=== PATIENT | female | born 1955 | race African-American/Black ===

== ENCOUNTER 2018-02-06 13:05 | Emergency (ER) | payer MEDICARE, OTHER ==
[~2018-02-06] VITALS: Ht 172.7 cm; Wt 95.5 kg
[~2018-02-06 13:05] MED LIST: ALBU8.5H8 IH; AMLO-512 PO; BECL8.7A6 IH; BENA20TA10 PO; CARI350 PO; DEXL30CA3 PO; GLIP10 PO; HYDR-308 PO; INSLAN SQ; METF850T2 PO
[2018-02-06] MEDS ORDERED: METO50 PO (13:20)
[2018-02-06] MEDS ORDERED: DULA1.5P SQ (13:20)
[2018-02-06 14:27] LABS: HEMATOCRIT 34.7 % (36-46); HEMOGLOBIN 11.7 g/dL (12.0-16.0); MEAN CORPUSCULAR HEMOGLOBIN 29.4 pg (26.0-34.0); MEAN CORPUSCULAR HGB CONC 33.9 G/dL (31.0-37.0); MEAN CORPUSCULAR VOLUME 87 fL (80-100); PLATELET COUNT (AUTO) 343 K/uL (150-450); RED CELL DISTRIBUTION WIDTH 14.9 % (11.5-14.5)
[2018-02-06 14:28] LABS: BASOPHILS % (AUTO) 1.4 % (0.0-2.0); EOSINOPHILS % (AUTO) 1.4 % (1.0-6.0); LYMPHOCYTES # (AUTO) 2.2 K/uL (1.0-4.8); LYMPHOCYTES % (AUTO) 20.9 % (22.0-44.0); MONOCYTES # (AUTO) 0.6 K/uL (0.1-1.0); MONOCYTES % (AUTO) 5.7 % (2.0-9.0); NEUTROPHILS # (AUTO) 7.4 K/uL (1.8-7.7); NEUTROPHILS % (AUTO) 70.6 % (40.0-70.0)
[2018-02-06 14:37] LABS: ANION GAP 13 mmol/L (8-16); CALCIUM, TOTAL 9.9 mg/dL (8.8-10.5); CARBON DIOXIDE 25 mmol/L (22-29); CHLORIDE 103 mmol/L (98-107); CREATININE 0.83 mg/dL (0.60-1.30); GLOMERULAR FILTR. RATE CALC > 60 mL/min (>60); GLUCOSE,RANDOM 141 mg/dL (70-110); POTASSIUM 3.6 mmol/L (3.5-5.1); SODIUM SERUM 141 mmol/L (136-145); UREA NITROGEN, BLOOD 13 mg/dL (7-18)
[2018-02-06 14:43] LABS: B-TYPE NATRIURETIC PEPTIDE 19 pg/mL (0-100)
[2018-02-06 14:52] LABS: ALANINE AMINOTRANSFERASE 20 U/L (12-78); ALBUMIN 3.4 g/dL (3.4-5.0); ALKALINE PHOSPHATASE 63 U/L (46-116); ASPARTATE AMINOTRANSFERASE 10 U/L (15-37); BILIRUBIN,TOTAL 0.3 mg/dL (0.1-1.0); CREATINE KINASE MB 0.6 ng/mL (0-5); CREATINE KINASE, TOTAL 54 U/L (26-192); TOTAL PROTEIN, SERUM 7.1 g/dL (6.4-8.2)
[2018-02-06 14:55] LABS: GLUCOSE,POINT OF CARE 162 MG/DL (70-110)
[2018-02-06 15:30] VITALS: BP 109/56
[2018-02-06] MEDS ORDERED: PERTUSS(ACELL),DIPH,TET VAC/PF 0.5 ML VIAL IM ONE (16:00)
[2018-02-13] MEDS ORDERED: METF500T6 PO (13:14)
[2018-02-13] MEDS ORDERED: LOSA50TA37 PO (13:14)
== END 2018-02-06 16:33 | disposition home or self-care (01) ==
LOC: EMS 13:06
DX: M54.6 Pain in thoracic spine (principal); R07.9 Chest pain, unspecified; M79.672 Pain in left foot; G89.29 Other chronic pain; J45.909 Unspecified asthma, uncomplicated; I25.10 Atherosclerotic heart disease of native coronary artery without angina pectoris; E11.9 Type 2 diabetes mellitus without complications; I10 Essential (primary) hypertension; Z18.81 Retained glass fragments; Z79.4 Long term (current) use of insulin; Z79.899 Other long term (current) drug therapy
CPT/HCPCS: 10120; 85379; 90471; 90715; 93005; 99285

== ENCOUNTER 2018-02-13 11:44 | Day surgery (SDC) | payer MEDICARE, OTHER ==
[~2018-02-13] VITALS: Ht 172.7 cm; Wt 95.5 kg
[~2018-02-13 11:44] MED LIST changes: -BECL8.7A6 IH; -BENA20TA10 PO; -CARI350 PO; +DULA1.5P SQ; -GLIP10 PO; -HYDR-308 PO; +METF-961 PO; -METF850T2 PO; +METO50 PO
[2018-02-13] MEDS ORDERED: SODIUM CHLORIDE 0.9% 1,000 ML IV ONE ×2 (12:00→12:04)
[2018-02-13 12:18] LABS: GLUCOMETER DEV NAME(LOC) SDS 5; GLUCOSE,POINT OF CARE 161 MG/DL (70-110)
[2018-02-13] MEDS ORDERED: BUPIVACAINE HCL/PF 0.75% 10 ML VIAL ONE (13:02)
[2018-02-13] MEDS ORDERED: TRIAMCINOLONE ACETONIDE 40 MG/ML VIAL ONE (13:02)
[2018-02-13] MEDS ORDERED: LIDOCAINE/PF 2% 5 ML VIAL ONE (13:03)
[2018-02-13] MEDS ORDERED: IOHEXOL 300 MG/ML 10 ML VIAL ONE (13:03)
[2018-02-13] MEDS ORDERED: SODIUM BICARBONATE 50 MEQ/50 ML VIAL ONE (13:03)
[2018-02-13] MEDS ORDERED: LIDOCAINE/PF 1% 30 ML VIAL ONE (13:03)
[2018-02-13] MEDS ORDERED: FLUT220HFA IH (13:14)
[2018-02-13] MEDS ORDERED: CLOP75 PO (13:14)
[2018-02-13] MEDS ORDERED: ESOM40CA54 PO (13:14)
[2018-02-13] MEDS ORDERED: ASPI81 PO (13:14)
[2018-02-13] MEDS ORDERED: INSLAN SQ (13:14)
[2018-02-13] MEDS ORDERED: HYDR-2924 PO (13:14)
[2018-02-13] MEDS ORDERED: METF-960 PO (13:14)
[2018-02-13] MEDS ORDERED: LOSA50TA25 PO (13:14)
[2018-02-13] MEDS ORDERED: FERR-89 PO (13:14)
[2018-02-13] MEDS ORDERED: METO-558 PO (13:14)
[2018-02-13] MEDS ORDERED: DIPH25 PO (13:14)
[2018-02-13] MEDS ORDERED: FLUT16H NASAL (13:27)
[2018-02-13] MEDS ORDERED: DULA0.75 SQ (13:27)
[2018-02-13] MEDS ORDERED: CARI350 PO (13:27)
[2018-02-13] MEDS ORDERED: SULI200T4 PO (13:27)
[2018-02-13] MEDS ORDERED: PREG75 PO (13:27)
[2018-02-13] MEDS ORDERED: DOCU250C91 PO (13:27)
[2018-02-13] MEDS ORDERED: NITR.4 SL (13:27)
[2018-02-13] MEDS ORDERED: VITAD1000 PO (13:27)
[2018-02-13] MEDS ORDERED: MONT10TA21 PO (13:27)
[2018-02-13] MEDS ORDERED: ROSU20 PO (13:27)
[2018-02-13 13:35] VITALS: BP 138/73
[2018-02-13] MEDS ORDERED: FentaNYL CITRATE-PF 100 MCG/2 ML VIAL ONE (13:49)
[2018-02-13] MEDS ORDERED: MIDAZOLAM HCL 2 MG/2 ML VIAL ONE ×2 (13:49→14:02)
[2018-02-13] MEDS ORDERED: MIDAZOLAM HCL 2 MG/2 ML VIAL IVP ONE ×2 (14:00)
[2018-02-13] MEDS ORDERED: FentaNYL CITRATE-PF 100 MCG/2 ML VIAL IVP ONE ×2 (14:00)
[2018-02-13] MEDS ORDERED: BUPIVACAINE HCL/PF 0.75% 10 ML VIAL IARTIC ONE (14:30)
[2018-02-13] MEDS ORDERED: LIDOCAINE 1% 30 ML/SOD BICARB 8.4% 4 ML SQ ONE (14:30)
[2018-02-13] MEDS ORDERED: TRIAMCINOLONE ACETONIDE 40 MG/ML VIAL IARTIC ONE (14:30)
[2018-02-13] MEDS ORDERED: IOHEXOL 300 MG/ML 10 ML VIAL IARTIC ONE (14:30)
[2018-02-13 14:34] VITALS: BP 105/65
== END 2018-02-13 16:20 | disposition home or self-care (01) ==
LOC: SDS 11:44
PROVIDERS: ATTEND Specialist
DX: M54.16 Radiculopathy, lumbar region (principal); E89.0 Postprocedural hypothyroidism; J44.9 Chronic obstructive pulmonary disease, unspecified; I11.9 Hypertensive heart disease without heart failure; G47.33 Obstructive sleep apnea (adult) (pediatric); I25.10 Atherosclerotic heart disease of native coronary artery without angina pectoris; M19.90 Unspecified osteoarthritis, unspecified site; E11.9 Type 2 diabetes mellitus without complications; Z87.891 Personal history of nicotine dependence; Z72.89 Other problems related to lifestyle; Z95.5 Presence of coronary angioplasty implant and graft; Z98.51 Tubal ligation status; Z79.82 Long term (current) use of aspirin; Z79.4 Long term (current) use of insulin; Z79.84 Long term (current) use of oral hypoglycemic drugs; Z87.01 Personal history of pneumonia (recurrent); Z79.899 Other long term (current) drug therapy; Z98.890 Other specified postprocedural states
CPT/HCPCS: 64479; 72275; 82962; 99152; 99153; J2250; J3010; J3301; J3490 ×3; J7030; Q9967

== ENCOUNTER 2018-08-03 15:24 | Emergency (ER) | payer MEDICARE, OTHER ==
[~2018-08-03] VITALS: Ht 172.7 cm; Wt 100.0 kg
[~2018-08-03 15:24] MED LIST changes: +ASPI81 PO; +CARI350 PO; +CLOP75TA17 PO; -DEXL30CA3 PO; +DIPH25 PO; +DOCU250C91 PO; +DULA0.75 SQ; -DULA1.5P SQ; +ESOM40CA54 PO; +FERR-89 PO; +FLUT16H NASAL; +FLUT220HFA IH; +HYDR-2924 PO; +LOSA50TA64 PO; +METF-960 PO; -METF-961 PO; +METO-558 PO; -METO50 PO; +MONT10TA21 PO; +NITR.4 SL; +PREG75 PO; +ROSU20 PO; +SULI200T4 PO; +VITAD1000 PO
[2018-08-03 15:39] LABS: GLUCOSE,POINT OF CARE 218 MG/DL (70-110)
[2018-08-03] MEDS ORDERED: ONDANSETRON HCL 4 MG/2 ML VIAL IM ONE (18:15)
[2018-08-03] MEDS ORDERED: FentaNYL CITRATE-PF 100 MCG/2 ML VIAL IM ONE (18:15)
[2018-08-03] MEDS ORDERED: CARISOPRODOL 350 MG TABLET PO ONE (19:45)
[2018-08-03] MEDS ORDERED: OxyCODONE HCL/ACETAMINOPHEN 10-325 MG TABLET PO ONE (19:45)
[2018-08-03 21:11] VITALS: BP 110/63
== END 2018-08-03 21:22 | disposition home or self-care (01) ==
LOC: EMS 15:25
DX: S39.012A Strain of muscle, fascia and tendon of lower back, initial encounter (principal); S20.212A Contusion of left front wall of thorax, initial encounter; S20.02XA Contusion of left breast, initial encounter; E11.65 Type 2 diabetes mellitus with hyperglycemia; M54.2 Cervicalgia; J45.909 Unspecified asthma, uncomplicated; I25.10 Atherosclerotic heart disease of native coronary artery without angina pectoris; K21.9 Gastro-esophageal reflux disease without esophagitis; I10 Essential (primary) hypertension; E03.9 Hypothyroidism, unspecified; Z79.4 Long term (current) use of insulin; Z79.82 Long term (current) use of aspirin; Z79.84 Long term (current) use of oral hypoglycemic drugs; V43.62XA Car passenger injured in collision with other type car in traffic accident, initial encounter; Y93.89 Activity, other specified; Y92.89 Other specified places as the place of occurrence of the external cause; Y99.8 Other external cause status
CPT/HCPCS: 71045; 72040; 72070; 72100; 82962; 96372; 99283; J2405; J3010